=== PATIENT | female | born 1940 | race Caucasian/White ===

== ENCOUNTER 2016-09-29 20:58 | Emergency (ER) | payer MEDICARE, BC ==
[~2016-09-29] VITALS: Ht 165.1 cm; Wt 67.1 kg
--- NOTE | 2016-09-29 21:05 | NUR ---
PT PRESENTED TO THE ER WITH A C/O RLE WOUND AND REDNESS. PT AMBULATED TO BED #2 WITH A STEADY GAIT. WOUND NOT WARM TO TOUCH. NO DRAINAGE NOTED. WOUND OPEN TO AIR.
--- NOTE | 2016-09-29 21:50 | NUR ---
INTERMEDIATE MANAGER IS AT THE BEDSIDE.
--- NOTE | 2016-09-29 21:57 | NUR ---
20G IV STARTED IN RFA.
[2016-09-29] MEDS ORDERED: IV SET PRIMARY PUMP SET 1 EA INFUS.SET MC ONE (21:58)
[2016-09-29] MEDS ORDERED: VANCOMYCIN 1 GM VIAL ONE (21:58)
[2016-09-29] MEDS ORDERED: IV D5W 250 ML IV ONE (21:58)
--- NOTE | 2016-09-29 21:58 | NUR ---
XRAY IN PROGRESS AT THE BEDSIDE.
[2016-09-29] MEDS ORDERED: VANCOMYCIN 1 GM in IV D5W 250 ML IV ONE (22:00)
--- NOTE | 2016-09-29 22:05 | NUR ---
PT REC'ING MEDICATION ORDERED.
[2016-09-29 22:08] LABS: EOSINOPHILS % (AUTO) 0.4 % (0.0-6.0); HEMATOCRIT 36 % (33-45); HEMOGLOBIN 12.1 g/dL (11.5-14.8); LYMPHOCYTES % (AUTO) 14.9 % (20.0-44.0); MEAN CORPUSCULAR HEMOGLOBIN 36 PG (26.0-33.0); MEAN CORPUSCULAR HGB CONC 34 g/dl (31.0-36.0); MEAN CORPUSCULAR VOLUME 106 fL (82-100); MONOCYTES # (AUTO) 1.4 /CMM (0.1-1.30); MONOCYTES % (AUTO) 21.3 % (2.0-12.0); NEUTROPHILS # (AUTO) 4.3 /CMM (1.8-8.9); NEUTROPHILS % (AUTO) 63.4 % (43.0-81.0); PLATELET COUNT (AUTO) 244 /CMM (150-450); RDW COEFFICIENT OF VARIATION 15.8 (11.5-15.0); WHITE BLOOD COUNT (AUTO) 6.8 K/uL (4.3-11.0)
[2016-09-29 22:14] LABS: CALCIUM, SERUM 9.2 mg/dL (8.5-10.1); CREATININE 1.1 mg/dL (0.6-1.3); POTASSIUM 3.3 mmol/L (3.5-5.1)
[2016-09-29] MEDS ORDERED: POTASSIUM CHLORIDE 20 MEQ TAB.PRT.SR PO ONE ×2 (22:26→22:30)
[2016-09-29 22:35] LABS: EOSINOPHILS % (MANUAL) 1 % (0-4); LYMPHOCYTES % (MANUAL) 13 % (16-48); MONOCYTES % (MANUAL) 13 % (0-11.0); NEUTROPHILS % (MANUAL) 73 (42-76)
[2016-09-29 22:36] LABS: PLATELET ESTIMATE ADEQUATE
[2016-09-29 23:18] VITALS: BP 142/83
== END 2016-09-29 23:19 | disposition home or self-care (01) ==
LOC: ER 21:10
DX: L03.115 Cellulitis of right lower limb (principal); E87.6 Hypokalemia; I10 Essential (primary) hypertension; I48.91 Unspecified atrial fibrillation; M79.89 Other specified soft tissue disorders
CPT/HCPCS: 36415; 73590-TC; 80048-TC; 83605-TC; 85025-TC; A4606; J3370; J7060; Z7610